=== PATIENT | female | born 1970 | race African-American/Black ===

== ENCOUNTER 2017-06-07 07:05 | Observation (INO) | payer MEDICARE, OTHER ==
[~2017-06-07] VITALS: Ht 167.6 cm; Wt 108.4 kg
[~2017-06-07 07:05] MED LIST: HYDROmorphone 2 MG/ML VIAL IV PRN; IV RINGERS,LACTATED 1000ML 1,000 ML IV SCH; LIDOCAINE 1% 1 ML SYRINGE. ID PRN; MORPHINE SULFATE 2 MG/ML DISP.SYRIN. IV PRN; ONDANSETRON PF 4 MG/2 ML VIAL. IV PRN; PROCHLORPERAZINE 10 MG/2 ML VIAL. IV PRN; QUET300T5 PO; fentaNYL PF VIAL 100 MCG/2 ML VIAL IV PRN
[2017-06-07] MEDS ORDERED: PROAIR HFA8.5 GM INH (07:40)
[2017-06-07] MEDS ORDERED: DABI150C PO (07:41)
[2017-06-07] MEDS ORDERED: HYDR-2762 PO (07:41)
[2017-06-07] MEDS ORDERED: METO-269 PO (07:42)
[2017-06-07 07:51] LABS: BASO # 0.1 x10^3/uL (0.0-0.2); BASO % 1 % (0-3); EOS % 3 % (0-3); HEMATOCRIT 45.2 % (36.0-47.0); HEMOGLOBIN 15.1 g/dL (12.0-15.5); LYMPH # 3.1 x10^3/uL (1.0-4.8); LYMPH % 49 % (24-48); MEAN CORPUSCULAR HEMOGLOBIN 33 pg (25-35); MEAN CORPUSCULAR HGB CONC 33 g/dL (31-37); MEAN CORPUSCULAR VOLUME 100 fL (79-100); MONO % 8 % (0-9); NEUT % 39 % (31-73); PLATELET COUNT 176 x10^3/uL (140-400); RED BLOOD COUNT 4.53 x10^6/uL (3.50-5.40); RED CELL DISTRIBUTION WIDTH 13.4 % (11.5-14.5); WHITE BLOOD COUNT 6.3 x10^3/uL (4.0-11.0)
[2017-06-07] MEDS ORDERED: fentaNYL PF VIAL 100 MCG/2 ML VIAL ONE ×2 (07:54→08:40)
[2017-06-07] MEDS ORDERED: ONDANSETRON PF 4 MG/2 ML VIAL. ONE (07:54)
[2017-06-07] MEDS ORDERED: DEXAMETHASONE SOD PHOS 20 MG/5 ML VIAL. ONE (07:54)
[2017-06-07] MEDS ORDERED: MIDAZOLAM HCL/PF 2 MG/2 ML VIAL. ONE (07:54)
[2017-06-07] MEDS ORDERED: LIDOCAINE 2% PF Vial for OR 5 ML VIAL. ONE (07:54)
[2017-06-07] MEDS ORDERED: PROPOFOL 20 ML IV ONE (07:54)
[2017-06-07] MEDS ORDERED: 0.9 % SODIUM CHLORIDE 50 ML VIAL. IJ ONE (07:58)
[2017-06-07] MEDS ORDERED: PHENYLEPHRINE 10 MG/ML VIAL. ONE (07:58)
[2017-06-07] MEDS ORDERED: LIDOCAINE 2%/EPI 1:100,000 20 ML VIAL. ONE (07:58)
[2017-06-07] MEDS ORDERED: LIDOCAINE 1% 20 ML VIAL. ONE (07:58)
[2017-06-07] MEDS ORDERED: BUPIVAC MPF-EPI 0.5%-1:200000 30 ML VIAL. ONE (08:03)
[2017-06-07] MEDS ORDERED: ESMOLOL 100 MG/10 ML VIAL. IV ONE (08:34)
[2017-06-07] MEDS ORDERED: SUCCINYLCHOLINE 200 MG/10 ML VIAL. ONE (08:41)
[2017-06-07] MEDS ORDERED: GLYCOPYRROLATE 1 MG/5 ML VIAL. ONE (08:51)
[2017-06-07] MEDS ORDERED: ALBUTEROL SULFATE 2.5 MG/3 ML NEBU. ONE ×2 (08:51→09:21)
[2017-06-07] MEDS ORDERED: DEXTROSE 50% 25 GM / 50ML DISP.SYRIN. IV PRN (09:15)
[2017-06-07] MEDS ORDERED: SIMETHICONE 80 MG TAB.CHEW PO PRN (09:15)
[2017-06-07] MEDS ORDERED: oxyCODONE/APAP 5/325 1 TAB TABLET PO PRN (09:15)
[2017-06-07] MEDS ORDERED: ONDANSETRON PF 4 MG/2 ML VIAL. IV PRN (09:15)
[2017-06-07] MEDS ORDERED: PROCHLORPERAZINE 10 MG/2 ML VIAL. IV PRN (09:15)
[2017-06-07] MEDS ORDERED: KETOROLAC TROMETHAMINE 30 MG/ML INJ. IV PRN (09:15)
[2017-06-07] MEDS ORDERED: diphenhydrAMINE 50 MG/ML VIAL IV PRN (09:15)
[2017-06-07] MEDS ORDERED: 0.9 % SODIUM CHLORIDE 10 ML DISP.SYRIN. IV PRN (09:15)
[2017-06-07] MEDS ORDERED: CALCIUM CARBONATE 500 MG TAB.CHEW PO PRN (09:15)
[2017-06-07] MEDS ORDERED: diphenhydrAMINE HCL 25 MG CAPSULE PO PRN (09:15)
[2017-06-07] MEDS ORDERED: ZOLPIDEM 5 MG TABLET. PO PRN (09:15)
--- NOTE | 2017-06-07 09:15 | PDOC ---
BRIEF OPERATIVE NOTE Pre-Op Diagnosis BRENDA Post-Op Diagnosis Same Procedure Performed Suburethral BLadder Sling Surgeon Dr. Murray Anesthesia Type: General Blood Loss 35 ml Specimens Obtained none Findings BRENDA Complications none RONALD MURRAY Jr, MD Jun 07, 2017 09:15
--- NOTE | 2017-06-07 09:18 | DISCH ---
DISCHARGE INSTRUCTIONS Condition on Discharge Condition on Discharge: Stable Activity After Discharge Activity Instructions for Disc: Activity as tolerated Lifting Instructions after Dis: No heavy lifting Driving Instructions after Dis: Do not drive today Diet after Discharge Diet after Discharge: Regular Contacting the DRAriel after DC Call your doctor for: If your condition worsens Follow-Up Follow up with: Complete bladder challenge around 12 noon. Follow Up With: May d/c home after bladder challenge. F/u Dr. Murray in 1 week. RONALD MURRAY Jr, MD Jun 07, 2017 09:18
[2017-06-07] MEDS ORDERED: ALBUTEROL SULFATE 2.5 MG/3 ML NEBU. NEB ONE (09:30)
--- NOTE | 2017-06-07 09:36 | OP ---
DATE OF SURGERY: 06/07/2017 PREOPERATIVE DIAGNOSIS: Stress urinary incontinence. POSTOPERATIVE DIAGNOSIS: Stress urinary incontinence. PROCEDURE: Suburethral bladder sling. SURGEON: Alessio Murray MD ANESTHESIA: GETA. ESTIMATED BLOOD LOSS: 5 mL. COMPLICATIONS: None. FINDINGS: Stress urinary incontinence. SUMMARY: A 47-year-old female who was diagnosed with stress urinary incontinence in the clinic and required suburethral bladder sling placement. She was counseled on risks, benefits and expectations, and voiced a clear understanding to proceed. DESCRIPTION OF PROCEDURE: The patient was taken to surgery suite and placed in dorsal lithotomy position. She was prepped with Betadine solution and draped in a sterile fashion. After adequate anesthesia, weighted speculum was placed vaginally. An Allis clamp was placed just 1 cm below the urethral orifice at the midline of the vaginal mucosa. A second Allis clamp was placed 3 cm below the first Allis clamp on the anterior vaginal wall mucosa. 0.5% lidocaine with epinephrine was injected in a linear fashion between the two Allis clamps as well as on the periurethral space. It was also injected at the insertion points of the Obtryx trocar sites. DICTATION ENDS HERE. ALESSIO MURRAY MD DR: GAURANG/oralia JOB#: [id number] / [id number]
--- NOTE | 2017-06-07 09:58 | OP ---
DATE OF SURGERY: 06/07/2017 PREOPERATIVE DIAGNOSIS: Stress urinary incontinence. POSTOPERATIVE DIAGNOSIS: Stress urinary incontinence. PROCEDURE: Suburethral bladder sling. SURGEON: Alessio Chaney MD ANESTHESIA: GETA. ESTIMATED BLOOD LOSS: 5 mL. COMPLICATIONS: None. FINDINGS: Stress urinary incontinence. SUMMARY: A 47-year-old female who was diagnosed with stress urinary incontinence in the clinic and required suburethral bladder sling placement. She was counseled on risks, benefits and expectations, and voiced a clear understanding to proceed. DESCRIPTION OF PROCEDURE: The patient was taken to the surgery suite and placed in dorsal lithotomy position. She was prepped with Betadine solution and draped in a sterile fashion. Weighted speculum was placed. The Allis clamp was placed 1 cm below the urethral orifice. A second Allis clamp was placed 3 cm below the first Allis clamp. 0.5% lidocaine with epinephrine was injected between the two Allis clamps as well as on the periurethral space. It was also injected in the groin region bilaterally, which was at the level of the clitoris where the adductor longus attached the pubic rami bilaterally. A scalpel was utilized to make a linear incision between the two Allis clamps and then the insertion points in the groin region. The anterior vaginal wall mucosa was dissected away from the pubovesical fascia using sharp dissection with Metzenbaum scissors all the way to the obturator foramen bilaterally. The right trocar was then placed through the insertion point and the tip was followed out through the periurethral space with my index finger. The suburethral mesh was attached and the trocar was removed in the opposite fashion. Same process took place at the left trocar. Cystoscopy was performed in which the bladder was intact with no defects, no perforations. The cystoscope was removed. The suburethral bladder sling mesh was adjusted to a loose fit using a size 7 Hegar dilator. The excess mesh at the level of the cornual region was removed with the aid of suture scissors. The groin incisions were reapproximated using Dermabond. The anterior vaginal wall mucosa was reapproximated using 2-0 Vicryl suture in a [id number] manner. Dickerson catheter was placed which elicited clear yellow urine. The patient tolerated procedure well and was taken to recovery room in stable condition. Sponge and needle count correct x 3. ALESSIO CHANEY MD DR: GAURANG/oralia JOB#: [id number] / [id number]
[2017-06-07 10:15] VITALS: BP 149/97
--- NOTE | 2017-06-07 10:23 | OP ---
DATE OF SURGERY: 06/07/2017 PREOPERATIVE DIAGNOSIS: Stress urinary incontinence. POSTOPERATIVE DIAGNOSIS: Stress urinary incontinence. PROCEDURE: Suburethral bladder sling. SURGEON: Alessio Chaney MD ANESTHESIA: GETA. ESTIMATED BLOOD LOSS: 5 mL. COMPLICATIONS: None. FINDINGS: Stress urinary incontinence. SUMMARY: A 47-year-old female who was diagnosed with stress urinary incontinence in the clinic and required suburethral bladder sling placement. She was counseled on risks, benefits and expectations, and voiced a clear understanding to proceed. DESCRIPTION OF PROCEDURE: The patient was taken to the surgery suite and placed in dorsal lithotomy position. She was prepped with Betadine solution and draped in a sterile fashion. Weighted speculum was placed. The Allis clamp was placed 1 cm below the urethral orifice. A second Allis clamp was placed 3 cm below the first Allis clamp. 0.5% lidocaine with epinephrine was injected between the two Allis clamps as well as on the periurethral space. It was also injected in the groin region bilaterally, which was at the level of the clitoris where the adductor longus attached the pubic rami bilaterally. A scalpel was utilized to make a linear incision between the two Allis clamps and then the insertion points in the groin region. The anterior vaginal wall mucosa was dissected away from the pubovesical fascia using sharp dissection with Metzenbaum scissors all the way to the obturator foramen bilaterally. The right trocar was then placed through the insertion point and the tip was followed out through the periurethral space with my index finger. The suburethral mesh was attached and the trocar was removed in the opposite fashion. Same process took place at the left trocar. Cystoscopy was performed in which the bladder was intact with no defects, no perforations. The cystoscope was removed. The suburethral bladder sling mesh was adjusted to a loose fit using a size 7 Hegar dilator. The excess mesh at the level of the cornual region was removed with the aid of suture scissors. The groin incisions were reapproximated using Dermabond. The anterior vaginal wall mucosa was reapproximated using 2-0 Vicryl suture in a [id number] manner. Dickerson catheter was placed which elicited clear yellow urine. The patient tolerated procedure well and was taken to recovery room in stable condition. Sponge and needle count correct x 3. ALESSIO CHANEY MD DR: GAURANG/oralia JOB#: [id number] / [id number]
[2017-06-07 10:25] VITALS: BP 154/89
[2017-06-07 10:40] VITALS: BP 147/99
[2017-06-07 10:55] VITALS: BP 143/90
[2017-06-07 11:20] VITALS: BP 142/92
[2017-06-07 12:07] VITALS: BP 152/88
[2017-06-07] MEDS ORDERED: GABAPENTIN 300 MG CAPSULE. PO SCH (14:00)
== END 2017-06-07 12:39 | disposition home or self-care (01) ==
LOC: SURG 07:05 → 3 NORTH 09:15
PROVIDERS: ADMIT Obstetrics & Gynecology; ATTEND Obstetrics & Gynecology
DX: N39.3 Stress incontinence (female) (male) (principal)
CPT/HCPCS: 36415; 57288; 85027; 86850; 86900; 86901; G0378; G0379; J0330; J1100; J2250; J2405; J2704; J3010; J3490; J7030; J7613; C1771; J2001